=== PATIENT | female | born 1960 | race Caucasian/White ===

== ENCOUNTER 2022-03-27 12:13 | Outpatient (CLI) | payer MEDICAID, SELFPAY ==
--- NOTE | 2022-03-27 12:28 | XR_ITS ---
WS: [email or web address] XR chest 2V* [id number] REASON FOR EXAM: ASTHMA FINDINGS: The heart and mediastinum are within normal limits. Calcified granulomatous disease in both hemithoraces with large calcified node(s) in the left hilum. No active pulmonary parenchymal or pleural disease. Elevation of the right hemidiaphragm. No hyperexpansion. XR/XR chest 2V* [id number] IMPRESSION: No acute chest abnormality. Elevation of the right hemidiaphragm.
== END 2022-03-27 12:14 | disposition home or self-care (01) ==
LOC: RAD 12:20
PROVIDERS: PCP Family Medicine; Visit Provider Family Medicine
DX: J45.909 Unspecified asthma, uncomplicated (principal)
CPT/HCPCS: 71046

== ENCOUNTER 2022-05-16 07:25 | Outpatient (CLI) | payer MEDICAID, SELFPAY ==
--- NOTE | 2022-05-16 07:54 | MM_ITS ---
WS: [email or web address] BILATERAL SCREENING DIGITAL TOMOSYNTHESIS MAMMOGRAM WITH CAD HISTORY: SCREENING COMPARISON: 11/06/2015 Bilateral CC and MLO views with tomosynthesis and synthetic mammography submitted. Computer aided det ection analyzed. Breast composition: There are scattered areas of fibroglandular density. No suspicious masses, microc alcifications or architectural distortion. Benign intramammary lymph nodes in the posterior RIGHT herminia ast. MM/[place] [id number] IMPRESSION: BI-RADS: 2-Benign FOLLOW UP: 1 Year Follow-up
--- NOTE | 2022-05-16 07:58 | CT_ITS ---
WS: [id number] CT CHEST WITHOUT INTRAVENOUS CONTRAST HISTORY: PULMONARY FIBROSIS, UNSPECIFIED TECHNIQUE: Contiguous 5 mm axial imaging performed on the thorax. Coronal and sagittal reformats are submitted. All CT scans at [facility] use at least one of these dose optimization techniques: automated exposure control; mA and/or kV adjustment per patient size (includes targeted exams where dose is matched to clinical indication); or iterative reconstruction. CONTRAST: None DLP: 303.89 mGy.cm COMPARISON: Radiograph 03/27/2022 Lungs and central airway: Increased opacification in the RIGHT middle lobe with areas of atelectasis. Mild bronchial wall thickening. No discrete mass. Mild tree-in-bud airspace disease RIGHT middle lob e. There is additional very mild bronchial thickening in the RIGHT upper lobe. Pleura: Normal. No pleural effusion. Heart and pericardium: Mild cardiomegaly with no pericardial effusion. Mediastinum and waylon: There is fullness at the RIGHT hilum but this cannot be further evaluated witho ut IV contrast. Cannot exclude lymphadenopathy. There are a few heavily calcified mediastinal lymph n odes. Vessels: Normal size aortic and pulmonary artery. No coronary artery calcifications. Chest wall and lower neck: Surgical clips near the LEFT thyroid bed. Upper abdomen: Hepatic and splenic granulomata. Possible cholelithiasis. Too small to characterize l ow-attenuation lesion in the posterior RIGHT lobe the liver. Osseous structures: No destructive process. CT/CT chest wo con [id number] IMPRESSION: 1. Bronchial thickening and mild atelectasis in the RIGHT middle lobe. There i s additional very mild bronchial wall thickening in the medial RIGHT upper lobe . Mild tree-in-bud airspace disease in the RIGHT middle lobe. This all may be e ndobronchial pneumonia and infection but needs to be further evaluated. Recomme nd follow-up chest CT with IV contrast in 3-4 weeks after treatment. 2. Cannot exclude adenopathy on this unenhanced study. 3. Possible cholelithiasis and hepatic cysts. Recommend RIGHT upper quadrant u ltrasound.
== END 2022-05-16 07:26 | disposition home or self-care (01) ==
LOC: RAD 07:28
PROVIDERS: PCP Family Medicine; Visit Provider Family Medicine
DX: J84.10 Pulmonary fibrosis, unspecified (principal); Z12.31 Encounter for screening mammogram for malignant neoplasm of breast; J98.11 Atelectasis
CPT/HCPCS: 71250; 77063; 77067

== ENCOUNTER 2022-06-12 08:46 | Outpatient (CLI) | payer MEDICAID, SELFPAY ==
--- NOTE | 2022-06-12 08:57 | US_ITS ---
WS: [id number] RIGHT UPPER QUADRANT ULTRASOUND HISTORY: CHOLELITHIASIS COMPARISON: None available. Liver: 17.6 cm in length. Normal size liver and echogenicity. No bile duct dilatation or mass. Portal Vein: Normal hepatopetal flow with monophasic waveform. Gallbladder: Mildly contracted gallbladder with numerous stones. Mild gallbladder wall thickening. No pericholecystic fluid. Negative Sam[place]'s sign. CBD: 0.3 cm Pancreas: Obscured by bowel gas. Right kidney: 10.6 cm in length. Normal size and echogenicity. No hydronephrosis or mass. Aorta and IVC: Unremarkable abdominal aorta and IVC. No ascites. US/US abdomen limited [id number] IMPRESSION: 1. Cholelithiasis in a slightly contracted gallbladder. 2. No bile duct dilatation.
== END 2022-06-12 08:47 | disposition home or self-care (01) ==
PROVIDERS: PCP Family Medicine; Visit Provider Family Medicine
DX: K80.20 Calculus of gallbladder without cholecystitis without obstruction (principal)
CPT/HCPCS: 76705

== ENCOUNTER 2022-06-27 08:56 | Outpatient (CLI) | payer MEDICAID, SELFPAY ==
--- NOTE | 2022-06-27 09:08 | CT_ITS ---
WS: [email or web address] CT chest w con* [id number] HISTORY: ABNORMAL CT CHEST TECHNIQUE: Axial imaging performed through the thorax. Coronal and sagittal reformats are submitted. All CT scans at [facility] use at least one of these dose optimization techniques: automated exposure control; mA and/or kV adjustment per patient size (includes targeted exams where dose is mat ched to clinical indication); or iterative reconstruction. CONTRAST: Omnipaque 350; 100 mL IV. DLP: 181.79 mGy.cm COMPARISON: 05/16/2022 Lungs and central airway: Moderate crowding of the lung markings is due to poor inspiration. Imaging performed on expiration instead of inspiration. Significant improvement in groundglass opacification and bronchial thickening RIGHT middle lobe and medial RIGHT upper lobe. No pneumonia. No mass. Pleura: Normal. No pleural effusion. Heart and pericardium: Very minimal cardiomegaly. No effusion. Mild LEFT atrial enlargement. Mediastinum and waylon: No mediastinum or hilar adenopathy. Vessels: Normal size aortic and pulmonary artery. No coronary artery calcifications. Chest wall and lower neck: No soft tissue masses. Upper abdomen: Normally distended gallbladder. Cholelithiasis seen on recent ultrasound is not visual ized by CT. No adrenal mass. Visualized liver is normal. Osseous structures: No destructive process. CT/CT chest w con* [id number] IMPRESSION: 1. Near complete resolution of the RIGHT middle lobe pneumonitis and atelectas is. Minimal persistent bronchial wall thickening and atelectasis in the RIGHT m iddle lobe. 2. No lymphadenopathy. 3. No pneumonia.
[2022-06-27 09:41] LABS: Blood Urea Nitrogen 9 mg/dL (8-23); Glomerular Filtration Rate 73.2 mL/min (90-130)
== END 2022-06-27 08:57 | disposition home or self-care (01) ==
LOC: RAD 08:59
PROVIDERS: PCP Family Medicine; Visit Provider Family Medicine
DX: R91.8 Other nonspecific abnormal finding of lung field (principal)
CPT/HCPCS: 71260; 82565; 84520; Q9967

== ENCOUNTER 2022-07-31 11:02 | Outpatient (CLI) | payer MEDICAID, SELFPAY | END 2022-07-31 11:03 | disposition home or self-care (01) | LOC: RT 11:04 | PROVIDERS: PCP Family Medicine; Visit Provider Family Medicine | DX: R06.00 Dyspnea, unspecified (principal); J45.909 Unspecified asthma, uncomplicated | CPT/HCPCS: 94010 ==

== ENCOUNTER → 2022-11-03 13:14 | Outpatient (BNVA) | payer MEDICAID, SELFPAY | PROVIDERS: PCP Family Medicine; Visit Provider Internal Medicine Pulmonary Disease | DX: R06.02 Shortness of breath (principal); J30.2 Other seasonal allergic rhinitis; J45.909 Unspecified asthma, uncomplicated; R06.00 Dyspnea, unspecified; J98.6 Disorders of diaphragm | CPT/HCPCS: 36415; 82785; 85025; 86003 ==

== ENCOUNTER → 2022-11-03 14:28 | Outpatient (BNVA) | payer MEDICAID, SELFPAY | PROVIDERS: PCP Family Medicine; Visit Provider Internal Medicine Pulmonary Disease | DX: R06.02 Shortness of breath (principal); J30.2 Other seasonal allergic rhinitis | CPT/HCPCS: 71046 ==

== ENCOUNTER 2022-11-14 11:46 | Outpatient (CLI) | payer MEDICAID, SELFPAY ==
[2022-11-14 12:32] VITALS: BMI 30.2
--- NOTE | 2022-11-14 12:42 | ECG_ITS ---
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 Interpretive Statements NAME OF STUDY: TREADMILL STRESS TEST INDICATION: Dyspnea on Exertion, patient had excessive sob, pt claimed lightheadedness at end of exercise PROCEDURE: At the baseline, the patient's blood pressure was 147/101 with a heart rate of 89. The baseline electrocardiogram showed normal sinus rhythm with normal ST-Ts.. The patient exercised for 2 minutes and 36 seconds on a standard Ken protocol. Patient attained a maximum heart rate of 167 beats per minute(104% of the maximum predicted heart rate) with a blood pressure at the peak exercise of 173/95 mm Hg. The EKG at the peak exercise revealed no significant changes. Patient did not have any chest pain or any significant cardiac arrhythmias with the exercise. He was mainly complaining of shortness of breath with exercise. During the recovery phase, there were no new changes. Blood pressure at the end of the recovery phase was 138/91 mm Hg with a heart rate of 192 per minute. CONCLUSION: 1. Normal EKG response to treadmill exercise 2. No exercise-induced chest pain or cardiac arrhythmia 3. Impaired exercise tolerance, attained a maximum of 4.6 METs. 4. The Camargo treadmill score was 0 (moderate risk) Electronically Signed On 11-17-2022 8:32:21 CDT by Jax North M.D. [email or web address]
[2022-11-14 13:16] VITALS: BP 145/99; PULSE 100
== END 2022-11-14 11:47 | disposition home or self-care (01) ==
LOC: CDL 11:47
PROVIDERS: PCP Family Medicine; Visit Provider Internal Medicine Pulmonary Disease
DX: R06.00 Dyspnea, unspecified (principal); R06.02 Shortness of breath; R42 Dizziness and giddiness
CPT/HCPCS: 93017

== ENCOUNTER 2023-01-09 07:00 | Outpatient (CLI) | payer MEDICAID, SELFPAY ==
--- NOTE | 2023-01-09 | US_ITS ---
WS: [id number] Complete ABDOMINAL ULTRASOUND HISTORY: ABDOMINAL PAIN, HYPOGASTRIC COMPARISON: 06/12/2022 Liver: 16.5 cm in length. Normal size liver and echogenicity. No bile duct dilatation or mass. Portal Vein: Normal hepatopetal flow with monophasic waveform. Gallbladder: Normally distended with stones. No pericholecystic fluid. No bile duct dilatation. CBD: 0.3 cm Pancreas: Obscured Right kidney: 9.1 cm x 5.1 x 4.5 cm. Cortex:1.4 cm. Normal size and echogenicity. No hydronephrosis or mass. Left kidney: 10.0 cm x 4.8 cm x 4.7 cm. Cortex: 1.2 cm. Normal size and echogenicity. No hydronephrosis or mass. Very slight dilatation of the renal pelvis. May represent an early obstruction. Spleen: 8.8 cm in length. Normal. Granuloma. Aorta and IVC: Unremarkable abdominal aorta and IVC. Impression: 1. Cholelithiasis without acute cholecystitis. 2. No bile duct dilatation. 3. Nonvisualization of the pancreas. 4. Very minimal fluid dilatation of the LEFT renal pelvis. Patient has a large pelvic mass which may be causing a partial obstruction or early obstruction of the LEFT ureter. Please refer to the pelvic ultrasound report obtained on the same day.
--- NOTE | 2023-01-09 | US_ITS ---
WS: [email or web address] US pelvic complete* [id number], transabdominal and transvaginal. HISTORY: Enlarged uterus COMPARISON: None available. Uterus: 8.2 cm x 4.9 cm x 4.6 cm. Uterus is anteverted and normal size. On the transvaginal imaging there is heterogeneity within the m yometrium suggesting underlying fibroids. Endometrium: 0.8 cm. Poorly visualized endometrium. Endometrium is enlarged for patient's age and pos tmenopausal. Neither ovary is identified. Large complex cystic mass centered within the pelvis but arising into the abdomen. Mass is above the uterus and extends over a length of at least 17 cm, transversely by 18 cm in anterior posterior by 12 cm. There are low-level echoes within. No increased vascularity. There is a thick septation in the p osterior cystic mass. No free fluid IMPRESSION: 1. Large complex cystic mass with septation arising from the pelvis measuring 18 x 12 x 17 cm. Most l ikely ovarian in etiology. Neither ovary is identified. O RADS 4, intermediate risk. Recommend follow -up with FURNITURE BUILDER surgery. 2. Endometrium at 0.8 cm is enlarged for postmenopausal patient. 3. No ascites.
== END 2023-01-09 07:01 | disposition home or self-care (01) ==
LOC: RAD 07:00
PROVIDERS: PCP Family Medicine; Visit Provider Family Medicine
DX: R10.30 Lower abdominal pain, unspecified (principal); N85.2 Hypertrophy of uterus; R19.00 Intra-abdominal and pelvic swelling, mass and lump, unspecified site
CPT/HCPCS: 76700; 76830; 76856

== ENCOUNTER 2023-01-20 14:19 | Emergency (ER) | payer MEDICAID, SELFPAY ==
[2023-01-20 15:00] VITALS: BP 125/96; PULSE 86; RESP 17; TEMP 36.6; O2SAT 97; BMI 30.9
[2023-01-20 15:04] LABS: Basophils # 0.1 10^3/uL (0.0-0.1); Basophils % 1.2 %; Eosinophils # 0.1 10^3/uL (0.0-0.8); Eosinophils % 0.9 %; Hematocrit 44.8 % (36-47); Lymphocytes # 2.4 10^3/uL (0.8-4.8); Lymphocytes % 34.4 %; Mean Corpuscular HGB Conc 33.5 g/dL (30-55); Mean Corpuscular Hemoglobin 29.3 pg (27-33); Mean Corpuscular Volume 87.5 fl (85-98); Mean Platelet Volume 9.4 fL (7.4-10.4); Monocytes # 0.5 10^3/uL (0.2-0.9); Monocytes % 6.9 %; Neutrophils # 3.91 10^3/uL (1.8-7.7); Neutrophils % 56.3 %; Nucleated Red Blood Cells % 0 %; Platelet Count 314 10^3/cmm (157-399); Red Blood Count 5.12 10^6/uL (3.85-5.65); White Blood Count 6.94 10^3/uL (3.29-11.43)
[2023-01-20 15:17] LABS: Alanine Aminotransferase 12 U/L (0-33); Albumin Level 4.5 g/dL (3.5-5.2); Alkaline Phosphatase 81 U/L (35-105); Anion Gap 15.8 (5-19); Aspartate Amino Transferase 18 U/L (0-32); Blood Urea Nitrogen 14 mg/dL (8-23); Calcium 9.3 mg/dL (8.5-10.5); Carbon Dioxide 24 mmol/L (22-29); Chloride 105 mmol/L (98-107); Globulin 3.1 g/dL (1.3-4.6); Glomerular Filtration Rate 63.9 mL/min (90-130); Glucose 97 mg/dL (65-115); Lipase 37 U/L (13-60); Osmolality Calculated 292 mOsm/kg (285-295); Potassium 3.8 mmol/L (3.5-5.1); Sodium 141 mmol/L (136-145); Total Bilirubin 0.3 mg/dL (0.15-1.2); Total Protein 7.6 g/dL (6.6-8.7)
--- NOTE | 2023-01-20 17:46 | ED_ITS ---
HPI - Abdominal Pain General: Chief Complaint: Abdominal Pain Stated Complaint: Nathan sent for abd pain Time Seen by Provider: 01/20/23 17:45 History of Present Illness: 62-year-old female comes in today with mid abdominal pain. Patient has a history of tubal ligation surgery 98, lobe removal of thyroid in 2011, seasonal allergies, environmental allergies, asthma. Patient reports increased pain over the last week to her abdomen. Patient reports constipation over the last 3 d ays. Patient has an abdominal mass in the right lower abdomen which was noted in ultrasound within the last month. Patient is scheduled to follow-up with [facility] for the abdominal mass for concerns of either a ovarian tumor or fibroid. Patient appears nontoxic. Patient appears in mild to moderate pain. Associated Symptoms: Reports constipation; Denies diarrhea, nausea and vomiting Review of Systems General: Reports: 10 or more systems reviewed and unremarkable except in HPI and below Card: Denies: chest pain Resp: Denies: dyspnea GI: Reports: abdominal pain and constipation; Denies: nausea, vomiting or diarrhea : Denies: difficulty voiding Musc: Denies: neck pain or back pain Skin/Breast: Denies: rash PFSH ED PFSH: Medical History (Updated 01/20/23 @ 19:16 by MICHAEL Armendariz) Asthma Dyspnea Family History Mother Hyperlipidemia Heart disease Diabetes Father Hypertension Hyperlipidemia Heart disease Diabetes Grandmother Breast cancer Social History Smoking and tobacco/nicotine status: never used tobacco/nicotine Physical Exam Const: COMMON NORMALS: alert HENMT: COMMON NORMALS: normocephalic HEAD & SCALP: normocephalic Neck/C-Spine: COMMON NORMALS: full ROM Resp: COMMON NORMALS: normal respiratory effort and clear to auscultation bilaterally AUSCULTATION: clear to auscultation bilaterally Cardio: COMMON NORMALS: regular rate and regular rhythm RATE: regular rate RHYTHM: regular rhythm GI: COMMON NORMALS: Soft to palpation PALPATION: Yes Soft to palpation Back/Pelvis: COMMON NORMALS: thoracic and lumbar spine normal to inspection Extremity: COMMON NORMALS: full ROM Neuro: SENSORIUM/ORIENTATION: Yes alert Skin: COMMON NORMALS: turgor normal GENERAL SKIN EXAM: turgor normal Course Vital Signs: Vital signs: Vital Signs Temperature 98 F 01/20/23 15:00 Pulse Rate 76 01/20/23 19:22 Respiratory Rate 17 01/20/23 15:00 Blood Pressure 137/96 01/20/23 19:22 Pulse Oximetry 98 01/20/23 19:22 Oxygen Delivery Me thod Room Air 01/20/23 18:16 MDM - Abdominal Pain Medical Decision Making Patient comes in today with increased abdominal pain for the last 5 days and constipation for the last 3 days. Patient appears nontoxic. Patient appears in mild to moderate pain. On exam a palpable mass is noted in right lower quadrant. Patient does admit that this has been an ultrasound and appears to either be a fibroid or ovarian tumor. Differential diagnosis includes but not limited to bowel obstruction, ovarian mass, diverticulitis, gastroenteritis, UTI, renal colic. CT noted a large cystic lesion suggestive of a serous cystadenoma, but no acute abnormality otherwise was noted. CBC CMP and urinalysis was unremarkable except for some increased white blood cells in the urine. We will go ahead and treat for a mild urinary tract infection with 3 days of cephalexin antibiotic. Patient was recommended to follow-up primary care or [facility] specialist regarding the mass. Patient was encouraged to return to the ER for worsening symptoms such as fever, worsening pain, blood in vomit or stool. Patient was stable and discharged home. Lab Data 01/20/23 14:56 01/20/23 14:56 Labs/Radiology: Radiology Impressions Abdomen/Pelvis CT 01/20/23 17:55 IMPRESSION: Large adnexal cystic lesion, favored right ovarian serous cystadenoma by imaging but ultimately indeterminate. Tissue sampling is recommended for further characterization. No adenopathy. Laboratory Results WBC 6.94 10^3/uL (3.29-11.43) 01/20/23 14:56 RBC 5.12 10^6/uL (3.85-5.65) 01/20/23 14:56 Hgb 15.00 g/dL (11.27-16.99) 01/20/23 14:56 Hct 44.8 % (36-47) 01/20/23 14:56 MCV 87.5 fl (85-98) 01/20/23 14:56 MCH 29.3 pg (27-33) 01/20/23 14:56 MCHC 33.5 g/dL (30-55) 01/20/23 14:56 RDW 13.0 % (12.1-15.1) 01/20/23 14:56 Plt Count 314 10^3/cmm (157-399) 01/20/23 14:56 MPV 9.4 fL (7.4-10.4) 01/20/23 14:56 Neut % (Auto) 56.3 % 01/20/23 14:56 Lymph % (Auto) 34.4 % 01/20/23 14:56 Collin % (Auto) 6.9 % 01/20/23 14:56 Eos % (Auto) 0.9 % 01/20/23 14:56 Baso % (Auto) 1.2 % 01/20/23 14:56 Neut # (Auto) 3.91 10^3/uL (1.8-7.7) 01/20/23 14:56 Lymph # (Auto) 2.4 10^3/uL (0.8-4.8) 01/20/23 14:56 Collin # (Auto) 0.5 10^3/uL (0.2-0.9) 01/20/23 14:56 Eos # (Auto) 0.1 10^3/uL (0.0-0.8) 01/20/23 14:56 Baso # (Auto) 0.1 10^3/uL (0.0-0.1) 01/20/23 14:56 Nucleated RBC % (auto) 0 % 01/20/23 14:56 Nucleated RBCs # 0.0 /100WBC 01/20/23 14:56 Sodium 141 mmol/L (136-145) 01/20/23 14:56 Potassium 3.8 mmol/L (3.5-5.1) 01/20/23 14:56 Chloride 105 mmol/L (98-107) 01/20/23 14:56 Carbon Dioxide 24 mmol/L (22-29) 01/20/23 14:56 Anion Gap 15.8 (5-19) 01/20/23 14:56 BUN 14 mg/dL (8-23) 01/20/23 14:56 Creatinine 0.9 mg/dL (0.5-0.9) 01/20/23 14:56 GFR Calculation 63.9 mL/min (90-130) L 01/20/23 14:56 Glucose 97 mg/dL (65-115) 01/20/23 14:56 Calculated Osmolality 292 mOsm/kg (285-295) 01/20/23 14:56 Calcium 9.3 mg/dL (8.5-10.5) 01/20/23 14:56 Total Bilirubin 0.3 mg/dL (0.15-1.2) 01/20/23 14:56 AST 18 U/L (0-32) 01/20/23 14:56 ALT 12 U/L (0-33) 01/20/23 14:56 Alkaline Phosphatase 81 U/L (35-105) 01/20/23 14:56 Total Protein 7.6 g/dL (6.6-8.7) 01/20/23 14:56 Albumin 4.5 g/dL (3.5-5.2) 01/20/23 14:56 Globulin 3.1 g/dL (1.3-4.6) 01/20/23 14:56 Lipase 37 U/L (13-60) 01/20/23 14:56 Urine Color Yellow (Yellow) 01/20/23 18:11 Urine Appearance Sl hazy (CLEAR) A 01/20/23 18:11 Urine pH 5 (5-7) 01/20/23 18:11 Ur Specific Harwick 1.030 (1.005-1.030) 01/20/23 18:11 Urine Protein Neg (Negative) 01/20/23 18:11 Urine Glucose (UA) Norm (Normal) 01/20/23 18:11 Urine Ketones 3+ (Negative) H 01/20/23 18:11 Urine Blood Neg (Negative) 01/20/23 18:11 Urine Nitrate Negative (Negative) 01/20/23 18:11 Urine Bilirubin Neg (Negative) 01/20/23 18:11 Urine Urobilinogen Norm mg/dL (Negative) 01/20/23 18:11 Ur Leukocyte Esterase Negative (Negative) 01/20/23 18:11 Urine RBC 0-4 /hpf (0-2) H 01/20/23 18:11 Urine WBC 25-40 /hpf (0-5) H 01/20/23 18:11 Ur Squamous Epith Cells 5-10 /hpf (0-5) H 01/20/23 18:11 Amorphous Sediment Not Reportable 01/20/23 18:11 Urine Bacteria 1+ /hpf (NONE) H 01/20/23 18:11 Urine Mucus 3+ /hpf 01/20/23 18:11 All radiology interpretation(s) finalized by discharge Discharge Plan Discharge Patient Disposition: Home Clinical Impression: Mass of right ovary UTI (urinary tract infection) Qualifiers: Urinary tract infection type: site unspecified Hematuria presence: without hematuria Qualified Code(s): N39.0 - Urinary tract infection, site not specified Condition: Stable Prescriptions: New cephalexin 500 mg capsule 500 mg PO BID 3 Days Qty: 6 0RF No Action famotidine 20 mg tablet 20 mg PO DAILY albuterol sulfate 90 mcg/actuation HFA aerosol inhaler 2 puff inhalation Q6H PRN ipratropium-albuterol 0.5 mg-3 mg(2.5 mg base)/3 mL solution for nebulization 3 ml inhalation QID PRN (Reason: wheezing) Qty: 180 6RF budesonide-formoterol [Symbicort] 80-4.5 mcg/actuation HFA aerosol inhaler 1 inh inhalation BID Qty: 10.2 6RF montelukast [Singulair] 10 mg tablet 10 mg PO DAILY Qty: 90 3RF Discharge Orders: Discharge ED (Routine); Ordered 01/20/23 Ordered By: Igor Kendrick Referrals: Willow Evans DO [Primary Care Provider] - Discharge Diet: Usual diet Discharge Activity: Increase activity as tolerated Patient Instructions: Abdominal Pain (ED) Activity Restrictions/Additional Instructions: Take antibiotic as directed. Drink plenty of water and fluids. Eat a healthy diet. Follow-up with primary care or [facility] for further evaluation regarding ovarian mass. Recheck urine in 1 week for signs of infection. Return to ER for worsening symptoms such as nausea and vomiting, blood in vomit or stool, or fever greater than 100.4. Coding Level of Care Code ED [employer] Usher for Justin Quevedo
--- NOTE | 2023-01-20 17:54 | PC.NURSE ---
ASSUMED [facility] @[id number]
--- NOTE | 2023-01-20 17:55 | CTR_ITS ---
PROCEDURE INFORMATION: Exam: CT Abdomen And Pelvis With Contrast Exam date and time: 01/20/2023 6:25 PM Age: 62 years old Clinical indication: Abdominal pain; Generalized; Prior surgery; Surgery date: 6+ months; Surgery type: Tubal; Additional info: Constipation, abd pain, pelvic mass TECHNIQUE: Imaging protocol: Computed tomography of the abdomen and pelvis with contrast. Radiation optimization: All CT scans at this facility use at least one of these dose optimization techniques: automated exposure control; mA and/or kV adjustment per patient size (includes targeted exams where dose is matched to clinical indication); or iterative reconstruction. Contrast material: OMNI 350; Contrast volume: 100 ml; Contrast route: INTRAVENOUS (IV); REPORTING DATA: Count of CT and Cardiac NM exams in prior 12 months: This patient has received 2 known CTs and 0 known cardiac nuclear medicine studies in the 12 months prior to the current study. COMPARISON: US pelv w/transvag [id number] 01/09/2023 7:53 AM RADIATION DOSE METRICS: Total DLP (mGy-cm): 696 FINDINGS: Liver: No mass. Gallbladder and bile ducts: Cholelithiasis. Pancreas: No ductal dilation. Spleen: No splenomegaly. Adrenal glands: No mass. Kidneys and ureters: No hydronephrosis. Stomach and bowel: No obstruction. Appendix: No evidence of appendicitis. Intraperitoneal space: No free air. No significant fluid collection. Vasculature: No abdominal aortic aneurysm. Lymph nodes: No enlarged lymph nodes. Urinary bladder: Decompressed. Reproductive: Large pelvic cystic lesion measuring at least 10 cm AP x 18.8 cm LR x 17 cm CC with multiple thick septations along the left portion (example sagittal image 25). This appears likely of right ovarian origin such as on axial image 77. Local mass effect. Bones/joints: No acute findings. L5-S1 spondylosis and spondylolisthesis. Soft tissues: No acute findings. CT/CT abdomen pelvis w con* [id number] IMPRESSION: Large adnexal cystic lesion, favored right ovarian serous cystadenoma by imaging but ultimately indeterminate. Tissue sampling is recommended for further characterization. No adenopathy.
[2023-01-20] MEDS: sodium chloride 0.9% 500 ML 999 ML IV (18:14)
[2023-01-20 18:16] VITALS: BP 126/99; PULSE 79; O2SAT 99
[2023-01-20 18:22] LABS: Add Urine Microscopic? YES; Bilirubin Urine Neg (Negative); Blood Urine Neg (Negative); Glucose Urine UA Norm (Normal); Ketones Urine 3+ (Negative); Leukocyte Esterase Urine Negative (Negative); Nitrate Urine Negative (Negative); Protein Urine Neg (Negative); Urine Appearance SL Hazy (CLEAR); Urine Color Yellow (Yellow); Urobilinogen Urine Norm (Negative); pH Urine 5 (5-7)
[2023-01-20] MEDS: iohexol 350 mg/mL 500 mL Btl (per mL) IV (18:28)
[2023-01-20 18:37] LABS: Bacteria Urine 1+ /hpf; Mucus Urine 3+ /hpf; RBC Urine 0-4 /hpf (0-2); WBC Urine 25-40 /hpf (0-5)
[2023-01-20 18:38] LABS: Add Urine Culture? No
[2023-01-20] MEDS: cephALEXin 500 mg Capsule PO (19:20)
[2023-01-20 19:22] VITALS: BP 137/96; PULSE 76; O2SAT 98
== END 2023-01-20 19:25 | disposition home or self-care (01) ==
PROVIDERS: Emergency Medicine; Emergency Provider Nurse Practitioner Family; PCP Family Medicine
DX: N39.0 Urinary tract infection, site not specified (principal); N83.291 Other ovarian cyst, right side
CPT/HCPCS: 36415; 74177; 80053; 81001; 83690; 85025; 96360; 99285; J7040; Q9967

== ENCOUNTER 2023-07-07 08:44 | Outpatient (CLI) | payer MEDICAID, SELFPAY ==
--- NOTE | 2023-07-07 08:51 | MM_ITS ---
WS: [email or web address] BILATERAL SCREENING DIGITAL TOMOSYNTHESIS MAMMOGRAM WITH CAD HISTORY: SCREENING COMPARISON: 05/16/2022, 11/06/2015 Bilateral CC and MLO views with tomosynthesis and synthetic mammography submitted. Computer aided det ection analyzed. Breast composition: There are scattered areas of fibroglandular density. No suspicious masses, microc alcifications or architectural distortion. Lymph nodes against the posterior chest wall within each b reast. MM/[place] [id number] IMPRESSION: BI-RADS: 2-Benign FOLLOW UP: 1 Year Follow-up
== END 2023-07-07 08:45 | disposition home or self-care (01) ==
LOC: RAD 08:45
PROVIDERS: PCP Family Medicine; Visit Provider Family Medicine
DX: Z12.31 Encounter for screening mammogram for malignant neoplasm of breast (principal); Z78.9 Other specified health status; R92.323 Mammographic fibroglandular density, bilateral breasts
CPT/HCPCS: 77063; 77067

== ENCOUNTER 2024-04-08 09:23 | Outpatient (CLI) | payer MEDICAID, SELFPAY ==
--- NOTE | 2024-04-08 09:27 | US_ITS ---
WS: [email or web address] RIGHT UPPER QUADRANT ULTRASOUND HISTORY: RUQ PAIN COMPARISON: 01/09/2023 Liver: 17.3 cm in length. Normal size liver and echogenicity. No bile duct dilatation or mass. Portal Vein: Normal hepatopetal flow with monophasic waveform. Gallbladder: Nondistended gallbladder with stones. Several stones are present in the gallbladder lume n. No pericholecystic fluid. CBD: 0.3 cm Pancreas: Obscured. Right kidney: 9.1 cm in length. Normal size and echogenicity. No hydronephrosis or mass. Aorta and IVC: Unremarkable abdominal aorta and IVC. No ascites. US/US abdomen limited [id number] IMPRESSION: 1. Cholelithiasis without acute cholecystitis. Similar to the prior exam from 01/09/2023. 2. Normal liver. 3. Normal common bile duct.
== END 2024-04-08 09:24 | disposition home or self-care (01) ==
LOC: RAD 09:24
PROVIDERS: PCP Family Medicine; Visit Provider Family Medicine
DX: R10.11 Right upper quadrant pain (principal); K80.20 Calculus of gallbladder without cholecystitis without obstruction
CPT/HCPCS: 76705

== ENCOUNTER 2024-04-14 13:39 | Outpatient (CLI) | payer MEDICAID, SELFPAY ==
--- NOTE | 2024-04-14 13:40 | CT_ITS ---
WS: [email or web address] CT chest wo con [id number] HISTORY: ABNORMAL CT, PULMONARY FIBROSIS, ASTHMA TECHNIQUE: Axial imaging performed through the thorax. Coronal and sagittal reformats are submitted. All CT scans at [facility] use at least one of these dose optimization techniques: automated exposure control; mA and/or kV adjustment per patient size (includes targeted exams where dose is matched to clinical indication); or iterative reconstruction. CONTRAST: None DLP: 284.43 mGy.cm COMPARISON: 05/16/2022, 06/27/2022 Lungs and central airway: Improved aeration of the lungs since the prior study. There is minimal persistent linear atelectasis in the RIGHT middle lobe with mild bronchiectasis. 5 mm nodule in the medial RIGHT upper lobe may have been present on the prior study but better visualized today due to improved aeration. Long-term stability 3 mm nodule LEFT upper lobe. No additional nodules. No pneumonia. Pleura: Normal. No pleural effusion. Heart and pericardium: Normal size heart with no pericardial effusion. Mediastinum and waylon: Dense heavily calcified periaortic and mediastinal lymph nodes. Vessels: Normal size aortic and pulmonary artery. No coronary artery calcifications. Chest wall and lower neck: No soft tissue masses. Upper abdomen: Small hiatal hernia. Hepatic and splenic granulomata. Cholelithiasis. Nondistended gallbladder. Osseous structures: No destructive process. CT/CT chest wo con [id number] IMPRESSION: 1. Overall improved aeration since 06/27/2022. 2. Persistent subsegmental atelectasis in the RIGHT middle lobe. 3. 5 mm noncalcified pulmonary nodule in the medial RIGHT upper lobe. Recommen d follow-up chest CT in 6 to 12 months. 4. Minimal bronchiectasis in the RIGHT middle lobe.
== END 2024-04-14 13:40 | disposition home or self-care (01) ==
LOC: RAD 13:39
PROVIDERS: PCP Family Medicine; Visit Provider Family Medicine
DX: R91.8 Other nonspecific abnormal finding of lung field (principal); J84.10 Pulmonary fibrosis, unspecified; J98.11 Atelectasis; J47.9 Bronchiectasis, uncomplicated; I89.8 Other specified noninfective disorders of lymphatic vessels and lymph nodes; K44.9 Diaphragmatic hernia without obstruction or gangrene; K75.3 Granulomatous hepatitis, not elsewhere classified; D73.89 Other diseases of spleen; K80.20 Calculus of gallbladder without cholecystitis without obstruction
CPT/HCPCS: 71250

== ENCOUNTER 2024-06-07 06:17 | Outpatient (CLI) | payer MEDICAID, SELFPAY ==
--- NOTE | 2024-06-07 06:24 | NM_ITS ---
WS: [id number] NUCLEAR MEDICINE HIDA SCAN WITH GALLBLADDER EJECTION FRACTION HISTORY: RUQ PAIN COMPARISON: 04/08/2024 TECHNIQUE: The patient was intravenously injected with 8.6 mCi of TC99m Mebrofenin. Immediate imaging over the right upper quadrant was followed by 5 minute image and additional images for a total of 60 minutes. Normal uptake of radiotracer throughout the liver. Activity identified in the gallbladder at 15 minutes and well distended by 60 minutes. Activity in the proximal small bowel was seen by 15 minutes. Good washout of the radiotracer from the liver by 60 minutes. The patient then drank 8 ounces of Ensure Plus. Ejection fraction at 60 minutes was 72%. Normal GB ejection fraction is 35-75%. Post fatty meal symptoms: None. NM/NM hepatobiliary w phar* [id number] IMPRESSION: 1. Normal HIDA scan. 2. Normal gallbladder ejection fraction.
== END 2024-06-07 06:18 | disposition home or self-care (01) ==
PROVIDERS: PCP Family Medicine; Visit Provider Family Medicine
DX: R10.11 Right upper quadrant pain (principal)
CPT/HCPCS: 78227; A9537

== ENCOUNTER 2024-08-02 06:52 | Outpatient (CLI) | payer MEDICAID, SELFPAY ==
[2024-08-02 07:24] VITALS: PULSE 84; RESP 22; O2SAT 95
[2024-08-02] MEDS: albuterol 2.5 mg/3 mL Neb INHALATION (07:24)
== END 2024-08-02 06:53 | disposition home or self-care (01) ==
LOC: RT 06:53
PROVIDERS: PCP Family Medicine; Visit Provider Student in an Organized Health Care Education/Training Program
DX: R06.09 Other forms of dyspnea (principal); J47.9 Bronchiectasis, uncomplicated
CPT/HCPCS: 94060; 94726; 94729; J7613

== ENCOUNTER 2024-09-27 06:28 | Outpatient (CLI) | payer MEDICAID, SELFPAY ==
--- NOTE | 2024-09-27 06:51 | USCV_ITS ---
Yasmeen Ovalle Age: 64 Gender: F : 1960 Exam Date: 09/27/2024 07:02 Ordering Phys: Sergio Montgomery MD Technologist: [place] [facility] [place]: pulmonic pressures BP: 120 / 70 HR: 67 Rhythm: Sinus Technical Quality: Adequate MEASUREMENTS (Male / Female) Normal Values 2D ECHO LV Diastolic Diameter PLAX 4.2 cm 4.2 - 5.9 / 3.9 - 5.3 cm IVS Diastolic Thickness 1.0 cm 0.6 - 1.0 / 0.6 - 0.9 cm IVS Systolic Thickness 1.6 cm LVPW Diastolic Thickness 1.0 cm 0.6 - 1.0 / 0.6 - 0.9 cm LVPW Systolic Thickness 1.4 cm LVOT Diameter 2.0 cm LV Ejection Fraction 2D Teich 66.5 % LV Ejection Fraction MOD 4C 66.6 % LV Ejection Fraction MOD 2C 67.6 % LV Ejection Fraction 2C AL 68.6 % LA Diameter 2.8 cm RA Systolic Volume 4C AL 17.0 ml RA Systolic Volume 4C MOD 15.2 ml Aorta at Sinotubular Diameter 2.8 cm IVC Diameter 1.3 cm M-MODE LA Ao Ratio MM 1.1 AV Cusp Separation MM 1.9 cm DOPPLER AV Peak Velocity 120.0 cm/s LVOT Peak Velocity 92.0 cm/s AV Area Cont Eq vti 2.7 cm squared AV Area Cont Eq pk 2.5 cm squared MV Peak Velocity 107.0 cm/s MV Area PHT 3.4 cm squared Mitral E to A Ratio 0.7 TV Peak Velocity 194.5 cm/s TR Peak Velocity 249.0 cm/s TR Peak Gradient 24.8 mmHg TV Peak E Velocity 91.0 cm/s PV Peak Velocity 91.0 cm/s FINDINGS Left Ventricle Normal left ventricular size, systolic function and wall thickness, with no regional wall motion abnormalities. Left ventricular ejection fraction is estimated at 60 %. Grade I/IV diastolic dysfunction (abnormal relaxation filling pattern), normal to mildly elevated filling pressures. Right Ventricle The right ventricle is normal in size and function. Right Atrium The right atrium is normal in size. Left Atrium The left atrium is normal in size. Mitral Valve Structurally normal mitral valve without significant stenosis or prolapse. There is no mitral regurgitation. Aortic Valve Structurally normal aortic valve without significant sclerosis or stenosis. There is no aortic regurgitation. Tricuspid Valve Structurally normal tricuspid valve without significant stenosis or regurgitation. Pulmonary artery systolic pressure is normal. Pulmonic Valve Structurally normal pulmonic valve without significant stenosis. There is no pulmonic regurgitation. Pericardium Normal pericardium without effusion. Aorta Normal ascending aorta dimension. IVC The inferior vena cava appears normal. CONCLUSIONS Normal left ventricular size, systolic function and wall thickness, with no regional wall motion abnormalities. Left ventricular ejection fraction is estimated at 60 %. Grade I/IV diastolic dysfunction (abnormal relaxation filling pattern), normal to mildly elevated filling pressures. There is no pericardial effusion. No significant valve abnormalities. Right atrial pressure is around 5 mm of mercury. Ulises Payan MD (Electronically Signed) Final Date: 29 September 2024 14:58 S
== END 2024-09-27 06:29 | disposition home or self-care (01) ==
LOC: RAD 06:28
PROVIDERS: PCP Family Medicine; Visit Provider Student in an Organized Health Care Education/Training Program
DX: R06.09 Other forms of dyspnea (principal); R93.1 Abnormal findings on diagnostic imaging of heart and coronary circulation
CPT/HCPCS: 93306

== ENCOUNTER 2024-10-12 08:36 | Outpatient (CLI) | payer MEDICAID, SELFPAY ==
--- NOTE | 2024-10-12 08:44 | MM_ITS ---
WS: [id number] BILATERAL SCREENING DIGITAL TOMOSYNTHESIS MAMMOGRAM WITH CAD HISTORY: SCREEN COMPARISON: 07/07/2023, 05/16/2022 Bilateral CC and MLO views with tomosynthesis and synthetic mammography submitted. Computer aided detection analyzed. Breast composition: There are scattered areas of fibroglandular density. No suspicious masses, microcalcifications or architectural distortion. Benign calcifications in each breast. MM/MM scr BI tomosynthesis [id number] IMPRESSION: BI-RADS: 2 - Benign. FOLLOW UP: 1 Year Follow-up
== END 2024-10-12 08:37 | disposition home or self-care (01) ==
PROVIDERS: PCP Family Medicine; Visit Provider Family Medicine
DX: Z12.31 Encounter for screening mammogram for malignant neoplasm of breast (principal); R92.323 Mammographic fibroglandular density, bilateral breasts
CPT/HCPCS: 77063; 77067

== ENCOUNTER 2024-10-26 09:04 | Emergency (ER) | payer MEDICAID, SELFPAY ==
[2024-10-26 09:07] VITALS: BP 176/117; PULSE 76; RESP 27; TEMP 36.4; O2SAT 95
--- NOTE | 2024-10-26 09:19 | ECG_ITS ---
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 Measurements Intervals [place] Rate: 75 P: 52 ID: [id number] QRS: 4 QRSD: 86 T: 36 QT: 396 QTc: 443 Interpretive Statements SINUS RHYTHM POSSIBLE LEFT ATRIAL ENLARGEMENT [-0.1mV P-WAVE IN V1/V2] POSSIBLE LEFT VENTRICULAR HYPERTROPHY [VOLTAGE CRITERIA PLUS LAE OR QRS WIDENING] No previous ECG available for comparison Electronically Signed On 10-29-2024 08:53:49 CDT by Cal Díaz M.D. [email or web address] [id number]
--- NOTE | 2024-10-26 09:19 | XR_ITS ---
WS: [id number] PORTABLE CHEST HISTORY: dyspnea/cough COMPARISON: 11/03/2022 Lungs are clear and well expanded. No pleural effusion or pneumothorax. Cardiac size: Normal. Mediastinum/Aorta: Calcified LEFT hilar lymph node. No osseous abnormality seen. XR/XR chest 1V portable [id number] IMPRESSION: Unremarkable portable chest.
--- NOTE | 2024-10-26 09:30 | ED_ITS ---
HPI - SOB/Dyspnea 2 General: Chief Complaint: Shortness of Breath/Dyspnea Stated Complaint: sob Time Seen by Provider: 10/26/24 09:19 History of Present Illness: HPI Narrative: 62-year-old female presents emergency ro om complaining of shortness of breath. She is a dose of Spiriva and felt more short of breath after using it. This morning is the first time she ever had it. On arrival she is tachypneic with a normal oxygen saturation and appears to be hyperventilating. Denies chest pain or abdominal pain no stridor no wheezing. Associated symptoms: Deny abdominal pain, chest pain or fever(s) Related Data Home Medications ?Medication ?Instructions ?Recorded ?Confirmed atorvastatin 20 mg tablet 20 mg PO BEDTIME 10/26/24 budesonide-formoterol HFA 160 2 puff inhalation BID 10/26/24 mcg-4.5 mcg/actuation aerosol inhaler (Symbicort) ibuprofen 200 mg tablet (Advil) 400 mg PO Q6H PRN Feve r Or Pain 10/26/24 10/26/24 omeprazole 20 mg capsule,delayed See Rx Instructions . Route .COMPLEX 10/26/24 10/26/24 release tiotropium bromide 1.25 2 puff inhalation DAILY 10/0810/26/24 mcg/actuation mist for inhalation (Spiriva Respimat) Previous Rx's ?Medication ?Instructions ?Recorded montelukast 10 mg tablet 10 mg PO DAILY #90 tabs 10/09 03/31 (Singulair) ipratropium 0.5 mg-albuterol 3 mg 3 ml inhalation QID PRN wheezing 04/07/23 (2.5 mg base)/3 mL nebulization #180 mL soln albuterol sulfate 90 mcg/actuation 2 inh inhalation Q4 H PRN shortness 10/26/24 aerosol inhaler of breath or wheezing #18 gr ams methylprednisolone 4 mg tablets in See Rx Instructions PO .COMPLEX 10/26/24 a dose pack (Medrol (Massimo)) #21 ea Allergies Allergy/AdvReac Type Severity Reaction Status Date / Time cyclobenzaprine Allergy Unknown Verified 01/06/24 10:19 Review of Systems 2 Const: Denies: fever(s) or chills Card: Denies: chest pain Resp: Denies: dyspnea GI: Denies: abdominal pain : Denies: dysuria, urinary frequency or urinary urgency Musc: Denies: neck pain or back pain Skin/Breast: Denies: rash PFSH ED 2 PFSH: Medical History Dyspnea Asthma Family History Mother Hyperlipidemia Heart disease Diabetes Father Hypertension Hyperlipidemia Heart disease Diabetes Grandmother Breast cancer Social History Smoking and tobacco/nicotine status: never used tobacco/nicotine Physical Exam 2 Const: COMMON NORMALS: no acute distress GENERAL APPEARANCE: cooperative and comfortable ORIENTATION/CONSCIOUSNESS: Yes awake, Yes oriented to person, Yes oriented to place and Yes oriented to time HENMT: COMMON NORMALS: normocephalic, atraumatic and hearing grossly normal bilaterally HEAD & SCALP: normocephalic and atraumatic Resp: COMMON NORMALS: No retractions and clear to auscultation bilaterally EFFORT & INSPECTION: Yes tachypneic and Yes uses accessory muscles A USCULTATION: clear to auscultation bilaterally Cardio: COMMON NORMALS: regular rate, regular rhythm and No murmurs present (Cardio) RATE: regular rate RHYTHM: regular rhythm GI: COMMON NORMALS: Soft to palpation and No hepatosplenomegaly present A USCULTATION: Yes normoactive bowel sounds PALPATION: Yes Soft to palpation, No Tenderness to palpation present (GI), No Guarding due to palpation present (GI) and Yes No hepatosplenomegaly present Extremity: COMMON NORMALS: normal to inspection, capillary refill normal, no clubbing, cyanosis or edema, no calf tenderness and no pedal edema Neuro: SENSORIUM/ORIENTATION: Yes oriented to person, Yes oriented to place and Yes oriented to time Skin: COMMON NORMALS: no rashes or lesions noted GENERAL SKIN EXAM: no rashes or lesions noted Course 2 Vital Signs: Vital signs: Vital Signs Temperature 97.6 F 10/26/24 09:07 Pulse Rate 94 10/26/24 13:32 Respiratory Rate 24 H 10/26/24 10:52 Blood Pressure 147/102 10/26/24 13:32 Pulse Oximetry 96 10/26/24 13:32 Oxygen Delivery Me thod Room Air 10/26/24 13:01 MDM - SOB/Dyspnea Medical Decision Making Patient still has significant anxiety she was not hyperventilating her blood gas she is tachypneic but her oxygen sats are normal her blood gases will acclimated. Chest x-ray is normal discharge patient home on a steroid taper suspect pelvic this is anxiety some this may be side effect of medications will overall hold on the Spiriva. Follow-up with her primary care doctor Medical Records I reviewed the patient's medical records. Lab Data I reviewed the patient's lab results. 10/26/24 09:33 10/26/24 09:33 Labs/Radiology: Radiology Impressions Chest X-Ray 10/26/24 09:19 IMPRESSION: Unremarkable portable chest. Laboratory Results WBC 9.84 10^3/uL (3.29-11.43) 10/26/24 09:33 RBC 5.24 10^6/uL (3.85-5.65) 10/26/24 09:33 Hgb 14.80 g/dL (11.27-16.99) 10/26/24 09:33 Hct 43.5 % (36-47) 10/26/24 09:33 MCV 83.0 fl (85-98) L 10/26/24 09:33 MCH 28.2 pg (27-33) 10/26/24 09:33 MCHC 34.0 g/dL (30-55) 10/26/24 09:33 RDW 12.9 % (12.1-15.1) 10/26/24 09:33 Plt Count 307 10^3/cmm (157-399) 10/26/24 09:33 MPV 9.2 fL (7.4-10.4) 10/26/24 09:33 Neut % (Auto) 76.0 % 10/26/24 09:33 Lymph % (Auto) 17.8 % 10/26/24 09:33 Walsh % (Auto) 5.0 % 10/26/24 09:33 Eos % (Auto) 0.1 % 10/26/24 09:33 Baso % (Auto) 0.5 % 10/26/24 09:33 Neut # (Auto) 7.48 10^3/uL (1.8-7.7) 10/26/24 09:33 Lymph # (Auto) 1.8 10^3/uL (0.8-4.8) 10/26/24 09:33 Walsh # (Auto) 0.5 10^3/uL (0.2-0.9) 10/26/24 09:33 Eos # (Auto) 0.0 10^3/uL (0.0-0.8) 10/26/24 09:33 Baso # (Auto) 0.1 10^3/uL (0.0-0.1) 10/26/24 09:33 Nucleated RBC % (auto) 0 % 10/26/24 09:33 Nucleated RBCs # 0.0 /100WBC 10/26/24 09:33 Specimen Type Arterial 10/26/24 09:57 Sample Site Brachial, left 10/26/24 09:57 ABG pH 7.42 (7.35-7.45) 10/26/24 09:57 ABG pCO2 39.3 mmHg (35-45) 10/26/24 09:57 ABG pO2 66.2 mmHg (80.0-100.0) L 10/26/24 09:57 ABG HCO3 25.5 mmol/L (22-26) 10/26/24 09:57 ABG Base Excess 1.0 mmol/L (-2.0-2.0) 10/26/24 09:57 Roldan Test N/a 10/26/24 09:57 Hematocrit 46.4 % (37-47) 10/26/24 09:57 Hgb O2 Saturation 91.6 % (95-100) L 10/26/24 09:57 Carboxyhemoglobin 0.2 %THgb (0.4-20.1) L 10/26/24 09:57 Methemoglobin 0.9 % (0.4-1.5) 10/26/24 09:57 Total Hemoglobin 15.1 g/dL (12-16) 10/26/24 09:57 O2 Delivery Device Room air 10/26/24 09:57 Chair Caner ID Amh 10/26/24 09:57 Sodium 140 mmol/L (136-145) 10/26/24 09:33 Potassium 4.0 mmol/L (3.5-5.1) 10/26/24 09:33 Chloride 105 mmol/L (98-107) 10/26/24 09:33 Carbon Dioxide 25 mmol/L (22-29) 10/26/24 09:33 Anion Gap 14.0 (5-19) 10/26/24 09:33 BUN 7 mg/dL (8-23) L 10/26/24 09:33 Creatinine 0.7 mg/dL (0.5-0.9) 10/26/24 09:33 GFR Calculation 84.8 mL/min (90-130) L 10/26/24 09:33 Glucose 99 mg/dL (65-115) 10/26/24 09:33 Calculated Osmolality 288 mOsm/kg (285-295) 10/26/24 09:33 Calcium 9.7 mg/dL (8.5-10.5) 10/26/24 09:33 Total Bilirubin 0.4 mg/dL (0.15-1.2) 10/26/24 09:33 AST 14 U/L (0-32) 10/26/24 09:33 ALT 17 U/L (0-33) 10/26/24 09:33 Alkaline Phosphatase 88 U/L (35-105) 10/26/24 09:33 Total Protein 7.9 g/dL (6.6-8.7) 10/26/24 09:33 Albumin 4.4 g/dL (3.5-5.2) 10/26/24 09:33 Globulin 3.5 g/dL (1.3-4.6) 10/26/24 09:33 All radiology interpretation(s) finalized by discharge Discharge Plan Discharge Patient Disposition: Home Clinical Impression: Adverse effects of medication, COPD (chronic obstructive pulmonary disease) Condition: Stable Prescriptions: New methylprednisolone [Medrol (Massimo)] 4 mg tablets,dose pack See Rx Instructions .ROUTE .COMPLEX Qty: 21 0RF Rx Instructions: orally per package directions albuterol sulfate 90 mcg/actuation HFA aerosol inhaler 2 inh INHALATION Q4H PRN (Reason: shortness of breath or wheezing) Qty: 18 0RF No Action montelukast [Singulair] 10 mg tablet 10 mg PO DAILY Qty: 90 3RF ipratropium-albuterol 0.5 mg-3 mg(2.5 mg base)/3 mL solution for nebulization 3 ml inhalation QID PRN (Reason: wheezing) Qty: 180 6RF atorvastatin 20 mg tablet 20 mg PO BEDTIME omeprazole 20 mg capsule,delayed release(DR/EC) See Rx Instructions .ROUTE .COMPLEX Rx Instructions: TAKE 1 CAPSULE BY MOUTH TWICE DAILY ON AN EMPTY STOMACH 30 MINUTES TO 1 HOUR PRIOR TO A MEAL. budesonide-formoterol [Symbicort] 160-4.5 mcg/actuation HFA aerosol inhaler 2 puff INHALATION BID ibuprofen [Advil] 200 mg Tablet 400 mg PO Q6H PRN (Reason: Fever Or Pain) Spiriva Respimat 1.25 mcg/actuation Mist 2 puff INHALATION DAILY Discharge Orders: Discharge ED (Routine); Ordered 10/26/24 Ordered By: Bryce Soto Referrals: Willow Evans DO [Primary Care Provider, EMPLOYEE TRAINING SPECIALIST] Discharge Diet: Usual diet Discharge Activity: Resume usual activity Patient Instructions: Opioid Safety, Pain Management, Patient Portal & [place] Instructions Activity Restrictions/Additional Instructions: Thank you for choosing [facility] for your healthcare needs today. It is very important that you follow up as instructed or that you return to the Emergency Department should you have concerns or if your condition changes or worsens in any way. You were seen in the emergency room with complaints of difficulty breathing after using this Spiriva. Recommend that you stop the Spiriva and use albuterol as needed. Will put you on a steroid taper follow-up with your primary care doctor for further medication adjustments. Print Language: Turkmen Coding Level of Care Code ED Exercise Physiology Professor for Justin Quevedo
[2024-10-26 09:39] LABS: Hematocrit 43.5 % (36-47); Hemoglobin 14.80 g/dL (11.27-16.99); Mean Corpuscular HGB Conc 34.0 g/dL (30-55); Mean Corpuscular Hemoglobin 28.2 pg (27-33); Mean Corpuscular Volume 83.0 fl (85-98); Nucleated Red Blood Cells % 0 %; Platelet Count 307 10^3/cmm (157-399); Red Blood Count 5.24 10^6/uL (3.85-5.65); White Blood Count 9.84 10^3/uL (3.29-11.43)
[2024-10-26] MEDS: LORazepam 1 MG/0.5 ML injection IVP ×2 (09:41→13:15)
[2024-10-26 09:56] LABS: Alanine Aminotransferase 17 U/L (0-33); Albumin Level 4.4 g/dL (3.5-5.2); Alkaline Phosphatase 88 U/L (35-105); Anion Gap 14.0 (5-19); Aspartate Amino Transferase 14 U/L (0-32); Blood Urea Nitrogen 7 mg/dL (8-23); Calcium 9.7 mg/dL (8.5-10.5); Carbon Dioxide 25 mmol/L (22-29); Chloride 105 mmol/L (98-107); Creatinine Clr Calc Pharmacy 77.1095; Globulin 3.5 g/dL (1.3-4.6); Glucose 99 mg/dL (65-115); Osmolality Calculated 288 mOsm/kg (285-295); Potassium 4.0 mmol/L (3.5-5.1); Sodium 140 mmol/L (136-145); Total Protein 7.9 g/dL (6.6-8.7)
[2024-10-26 10:08] LABS: ABG PCO2 39.3 mmHg (35-45); ABG PH Result 7.42 (7.35-7.45); Arterial Blood Gas Hematocrit 46.4 % (37-47); Blood Gas Operator Identificat AMH; Blood Gas Sample Site Brachial, left; Blood Gas Sample Type Arterial; Carboxyhemoglobin 0.2 %THgb (0.4-20.1); HCO3 ABG 25.5 mmol/L (22-26); Methemoglobin 0.9 % (0.4-1.5); PO2 ABG 66.2 mmHg (80.0-100.0)
[2024-10-26 10:52] VITALS: PULSE 82; RESP 24; O2SAT 96
[2024-10-26] MEDS: methylPREDNISolone sod succ 125 mg/2 mL INJ IVP (10:52)
[2024-10-26 10:53] VITALS: BP 152/100; PULSE 84; O2SAT 98
[2024-10-26 12:30] VITALS: BP 138/106; PULSE 94; O2SAT 94
[2024-10-26 13:01] VITALS: BP 143/102; PULSE 93; O2SAT 94
[2024-10-26 13:32] VITALS: BP 147/102; PULSE 94; O2SAT 96
== END 2024-10-26 13:33 | disposition home or self-care (01) ==
PROVIDERS: Emergency Provider Family Medicine; PCP Family Medicine
DX: J44.9 Chronic obstructive pulmonary disease, unspecified (principal); T44.3X5A Adverse effect of other parasympatholytics [anticholinergics and antimuscarinics] and spasmolytics, initial encounter; X58.XXXA Exposure to other specified factors, initial encounter
CPT/HCPCS: 36415; 36600; 71045; 80053; 82805; 85025; 93005; 94640; 96374; 96375; 96376; 99285; J2060; J2919; J9999

== ENCOUNTER 2024-11-09 10:26 | Emergency (ER) | payer MEDICAID, SELFPAY ==
[2024-11-09 10:31] VITALS: BP 159/112; PULSE 101; RESP 24; TEMP 36.6; O2SAT 98; BMI 30.2
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
--- NOTE | 2024-11-09 10:34 | XR_ITS ---
WS: [id number] Portable AP upright chest, 11/09/2024 Clinical Data: sob Comparison: Portable chest, 10/26/2024 Findings: No nodules, masses or effusions are seen. The heart is normal. The pulmonary vascularity is not increased. No pneumonia or pneumothorax is seen. There is a calcified left hilar lymph node unchanged. The aortic arch shows mild tortuosity. Monitor leads are on the chest wall. XR/XR chest 1V portable [id number] Impression: Old granulomatous disease and atherosclerosis.
--- NOTE | 2024-11-09 10:34 | ECG_ITS ---
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 Measurements Intervals [place] Rate: 104 P: 39 [place]: 152 QRS: 1 QRSD: 84 T: 23 QT: 344 QTc: 454 Interpretive Statements SINUS TACHYCARDIA WITH OCCASIONAL VENTRICULAR PREMATURE COMPLEXES MODERATE VOLTAGE CRITERIA FOR LVH, CONSIDER NORMAL VARIANT [MEETS CRITERIA IN ONE OF: R(aVL), S(V1), R(V5), R(V5/V6)+S(V1)] ABNORMAL RHYTHM ECG Compared to ECG 10/26/2024 09:10:51 Ventricular premature complex(es) now present Sinus rhythm no longer present Electronically Signed On 11-09-2024 17:32:55 CDT by Jax North M.D. [email or web address] [id number]
--- NOTE | 2024-11-09 10:35 | ED_ITS ---
HPI - SOB/Dyspnea 2 General: Chief Complaint: Shortness of Breath/Dyspnea Stated Complaint: SOB Time Seen by Provider: 11/09/24 10:28 Source: patient and EMS Mode of arrival: EMS Limitations: no limitations History of Present Illness: HPI Narrative: 64-year-old female who states she has be en having shortness of breath over the last 4 years states she has had some increasing shortness of breath last few days. States she has been diagnosed with pulmonary fibrosis patient denies any cough she denies any fever she denies any chest pain patient's pulse ox here is 94% on room air she does not wear oxygen at home. Associated symptoms: Deny abdominal pain, chest pain, fever(s), nausea or vomiting Related Data Home Medications ?Medication ?Instructions ?Recorded ?Confirmed atorvastatin 20 mg tablet 20 mg PO BEDTIME 10/26/24 budesonide-formoterol HFA 160 2 puff inhalation BID 11/09/24 mcg-4.5 mcg/actuation aerosol inhaler (Symbicort) ibuprofen 200 mg tablet (Advil) 400 mg PO Q6H PRN Feve r Or Pain 10/26/24 11/09/24 omeprazole 20 mg capsule,delayed See Rx Instructions . Route .COMPLEX 10/26/24 11/09/24 release Previous Rx's ?Medication ?Instructions ?Recorded montelukast 10 mg tablet 10 mg PO DAILY #90 tabs 10/09 03/31 (Singulair) ipratropium 0.5 mg-albuterol 3 mg 3 ml inhalation QID PRN wheezing 04/07/23 (2.5 mg base)/3 mL nebulization #180 mL soln albuterol sulfate 90 mcg/actuation 2 inh inhalation Q4 H PRN shortness 10/26/24 aerosol inhaler of breath or wheezing #18 gr ams prednisone 50 mg tablet 50 mg PO DAILY #5 tabs 11/09 Allergies Allergy/AdvReac Type Severity Reaction Status Date / Time cyclobenzaprine Allergy Unknown Verified 01/06/24 10:19 Review of Systems 2 Const: Denies: fever(s), chills, body aches or change in appetite Card: Denies: chest pain Resp: Reports: dyspnea GI: Denies: abdominal pain, nausea, vomiting or diarrhea Musc: Denies: neck pain or back pain Skin/Breast: Denies: rash Neuro: Denies: headache(s) PFSH ED 2 PFSH: Medical History Dyspnea Asthma Family History Mother Hyperlipidemia Heart disease Diabetes Father Hypertension Hyperlipidemia Heart disease Diabetes Grandmother Breast cancer Social History Smoking and tobacco/nicotine status: never used tobacco/nicotine Physical Exam 2 Const: COMMON NORMALS: no acute distress, patient oriented x3 and healthy appearing HENMT: COMMON NORMALS: normocephalic and atraumatic HEAD & SCALP: n ormocephalic and atraumatic Neck/C-Spine: COMMON NORMALS: full ROM and supple Chest: COMMONS NORMALS: normal inspection of the chest Resp: COMMON NORMALS: normal respiratory effort, No retractions, No use of accessory muscles and clear to auscultation bilaterally AUSCULTATION: clear to auscultation bilaterally Cardio: COMMON NORMALS: regular rate, regular rhythm and No murmurs present (Cardio) RATE: regular rate RHYTHM: regular rhythm Extremity: COMMON NORMALS: normal to inspection and full ROM Neuro: COMMON NORMALS: patient oriented x3, moves all extremities and no focal motor deficits Psych: COMMON NORMALS: mental status grossly normal, Normal thought process present and cooperative THOUGHT PROCESS: Normal thought process present Skin: COMMON NORMALS: no rashes or lesions noted and no wounds GENERAL SKIN EXAM: no rashes or lesions noted Course 2 Vital Signs: Vital signs: Vital Signs Temperature 97.8 F 11/09/24 10:31 Pulse Rate 115 H 11/09/24 11:45 Respiratory Rate 18 11/09/24 11:45 Blood Pressure 115/87 11/09/24 11:45 Pulse Oximetry 95 11/09/24 11:45 Oxygen Delivery Me thod Room Air 11/09/24 11:09 Fraction of Inspir ed Oxygen 21 11/09/24 10:51 MDM - SOB/Dyspnea Medical Decision Making Patient presents here with shortness of breath patient's blood work imaging here is all normal she feels much improved after breathing treatment and steroids she does have some slight tachycardia likely from the albuterol that she has no signs of pulmonary embolism. Will start her on steroids she is follow-up with PCP return if worsening. Medical Records I reviewed the patient's medical records. Lab Data I reviewed the patient's lab results. 11/09/24 10:29 11/09/24 10:29 Labs/Radiology: Radiology Impressions Chest X-Ray 11/09/24 10:34 Impression: Old granulomatous disease and atherosclerosis. Laboratory Results WBC 10.77 10^3/uL (3.29-11.43) 11/09/24 10:29 RBC 5.53 10^6/uL (3.85-5.65) 11/09/24 10:29 Hgb 15.80 g/dL (11.27-16.99) 11/09/24 10:29 Hct 46.4 % (36-47) 11/09/24 10:29 MCV 83.9 fl (85-98) L 11/09/24 10:29 MCH 28.6 pg (27-33) 11/09/24 10:29 MCHC 34.1 g/dL (30-55) 11/09/24 10:29 RDW 13.2 % (12.1-15.1) 11/09/24 10:29 Plt Count 312 10^3/cmm (157-399) 11/09/24 10:29 MPV 9.7 fL (7.4-10.4) 11/09/24 10:29 Neut % (Auto) 54.9 % 11/09/24 10:29 Lymph % (Auto) 37.3 % 11/09/24 10:29 [place] % (Auto) 5.2 % 11/09/24 10:29 Eos % (Auto) 0.9 % 11/09/24 10:29 Baso % (Auto) 0.6 % 11/09/24 10:29 Neut # (Auto) 5.91 10^3/uL (1.8-7.7) 11/09/24 10:29 Lymph # (Auto) 4.0 10^3/uL (0.8-4.8) 11/09/24 10:29 [place] # (Auto) 0.6 10^3/uL (0.2-0.9) 11/09/24 10:29 Eos # (Auto) 0.1 10^3/uL (0.0-0.8) 11/09/24 10:29 Baso # (Auto) 0.1 10^3/uL (0.0-0.1) 11/09/24 10:29 Nucleated RBC % (auto) 0 % 11/09/24 10: Nucleated RBCs # 0.0 /100WBC 11/09/24 10:29 Sodium 145 mmol/L (136-145) 11/09/24 10:29 Potassium 3.8 mmol/L (3.5-5.1) 11/09/24 10:29 Chloride 105 mmol/L (98-107) 11/09/24 10:29 Carbon Dioxide 25 mmol/L (22-29) 11/09/24 10:29 Anion Gap 18.8 (5-19) 11/09/24 10:29 BUN 12 mg/dL (8-23) 11/09/24 10: Creatinine 0.7 mg/dL (0.5-0.9) 11/09/24 10:29 GFR Calculation 84.8 mL/min (90-130) L 11/09/24 10:29 Glucose 98 mg/dL (65-115) 11/09/24 10: Calculated Osmolality 300 mOsm/kg (285-295) H 11/09/24 10:29 Calcium 9.9 mg/dL (8.5-10.5) 11/09/24 10:29 Total Bilirubin 0.5 mg/dL (0.15-1.2) 11/09/24 10:29 AST 18 U/L (0-32) 11/09/24 10:29 ALT 32 U/L (0-33) 11/09/24 10:29 Alkaline Phosphatase 98 U/L (35-105) 11/09/24 10:29 NT-Pro-B Natriuret Pep < 36 pg/mL (0-125) 11/09/24 10:29 Total Protein 7.9 g/dL (6.6-8.7) 11/09/24 10:29 Albumin 4.4 g/dL (3.5-5.2) 11/09/24 10:29 Globulin 3.5 g/dL (1.3-4.6) 11/09/24 10:29 All radiology interpretation(s) finalized by discharge EKG Data EKG 1: I personally reviewed and interpreted this EKG as follows: EKG Interpretation Date: 11/09/24 EKG interpretation time: 10:28 Interpretation: sinus tach hr [address] elevation qrs 84 qtc 405 Discharge Plan Discharge Patient Disposition: Home Clinical Impression: Shortness of breath Condition: Stable Prescriptions: New prednisone 50 mg tablet 50 mg PO DAILY Qty: 5 0RF No Action montelukast [Singulair] 10 mg tablet 10 mg PO DAILY Qty: 90 3RF ipratropium-albuterol 0.5 mg-3 mg(2.5 mg base)/3 mL solution for nebulization 3 ml inhalation QID PRN (Reason: wheezing) Qty: 180 6RF atorvastatin 20 mg tablet 20 mg PO BEDTIME omeprazole 20 mg capsule,delayed release(DR/EC) See Rx Instructions .ROUTE .COMPLEX Rx Instructions: TAKE 1 CAPSULE BY MOUTH TWICE DAILY ON AN EMPTY STOMACH 30 MINUTES TO 1 HOUR PRIOR TO A MEAL. budesonide-formoterol [Symbicort] 160-4.5 mcg/actuation HFA aerosol inhaler 2 puff INHALATION BID ibuprofen [Advil] 200 mg Tablet 400 mg PO Q6H PRN (Reason: Fever Or Pain) albuterol sulfate 90 mcg/actuation HFA aerosol inhaler 2 inh INHALATION Q4H PRN (Reason: shortness of breath or wheezing) Qty: 18 0RF Discharge Orders: Discharge ED (Routine); Ordered 11/09/24 Ordered By: Tameka Lucero Referrals: Willow Evans DO [Primary Care Provider, LANDSCAPE MANAGER] Discharge Diet: Advance as tolerated Discharge Activity: Resume usual activity Patient Instructions: Shortness of Breath (ED) Print Language: Albanian Coding Level of Care Code ED Staking Engineer for Justin Quevedo
[2024-11-09] MEDS: methylPREDNISolone sod succ 125 mg/2 mL INJ IV (10:47)
[2024-11-09] MEDS: LORazepam 1 MG/0.5 ML injection 0.5 MG IVP (10:47)
[2024-11-09 10:51] VITALS: PULSE 107; RESP 18; O2SAT 93
[2024-11-09 10:57] LABS: Hematocrit 46.4 % (36-47); Hemoglobin 15.80 g/dL (11.27-16.99); Mean Corpuscular HGB Conc 34.1 g/dL (30-55); Mean Corpuscular Hemoglobin 28.6 pg (27-33); Mean Corpuscular Volume 83.9 fl (85-98); Nucleated Red Blood Cells % 0 %; Platelet Count 312 10^3/cmm (157-399); Red Blood Count 5.53 10^6/uL (3.85-5.65); White Blood Count 10.77 10^3/uL (3.29-11.43)
[2024-11-09 11:02] VITALS: PULSE 109
[2024-11-09 11:09] VITALS: BP 159/112; PULSE 117; RESP 18; O2SAT 91
[2024-11-09 11:20] LABS: Alanine Aminotransferase 32 U/L (0-33); Albumin Level 4.4 g/dL (3.5-5.2); Alkaline Phosphatase 98 U/L (35-105); Anion Gap 18.8 (5-19); Aspartate Amino Transferase 18 U/L (0-32); Blood Urea Nitrogen 12 mg/dL (8-23); Calcium 9.9 mg/dL (8.5-10.5); Carbon Dioxide 25 mmol/L (22-29); Chloride 105 mmol/L (98-107); Creatinine Clr Calc Pharmacy 78.9249; Globulin 3.5 g/dL (1.3-4.6); Glucose 98 mg/dL (65-115); NT Pro B Type Natriuretic Pept < 36 pg/mL (0-125); Osmolality Calculated 300 mOsm/kg (285-295); Potassium 3.8 mmol/L (3.5-5.1); Sodium 145 mmol/L (136-145); Total Protein 7.9 g/dL (6.6-8.7)
[2024-11-09 11:45] VITALS: BP 115/87; PULSE 115; RESP 18; O2SAT 95
== END 2024-11-09 11:46 | disposition home or self-care (01) ==
PROVIDERS: Emergency Provider Emergency Medicine; PCP Family Medicine
DX: R06.02 Shortness of breath (principal); J45.909 Unspecified asthma, uncomplicated
CPT/HCPCS: 71045; 80053; 83880; 85025; 93005; 94640; 96374; 96375; 99285; J2060; J2919; J7613; J9999

== ENCOUNTER 2024-11-30 10:53 | Outpatient (CLI) | payer MEDICAID, SELFPAY ==
--- NOTE | 2024-11-30 10:58 | XR_ITS ---
WS: [id number] Exam: XR hand LT min 3V* [id number] Date/Time of Exam: 11/30/2024 11:01 AM Reason For Exam: L HAND PAIN DLP: No fracture. The joints are preserved. Soft tissues are unremarkable. XR/XR hand LT min 3V* [id number] IMPRESSION: 1. No fracture or other significant finding.
== END 2024-11-30 10:54 | disposition home or self-care (01) ==
LOC: RAD 10:56
PROVIDERS: PCP Family Medicine; Visit Provider Family Medicine
DX: M79.642 Pain in left hand (principal)
CPT/HCPCS: 73130

== ENCOUNTER 2025-01-05 09:08 | Outpatient (CLI) | payer MEDICAID, SELFPAY ==
--- NOTE | 2025-01-05 09:15 | CT_ITS ---
WS: [id number] CT CERVICAL SPINE HISTORY: SHORTNESS OF BREATH/CERVICALGIA TECHNIQUE: Contiguous 2.0 mm axial imaging performed through the entire cervical spine. Sagittal and coronal reformats also performed. All CT scans at [facility] use at least one of these dose optimization techniques: automated exposure control; mA and/or kV adjustment per patient size (includes targeted exams where dose is matched to clinical indication); or iterative reconstruction. DLP: 140.57 mGy.cm COMPARISON: None available. Straightening and very slight reversal the normal cervical lordosis is probably positional. No cervical spine fracture. Facet joints are normally aligned. Small vertebral body endplate osteophytes are most significant at C4 and C5. Lateral masses of C1 and C2 are aligned. The odontoid is intact. C2-C3: Normal. C3-C4: Mild osteophytic ridging and facet arthritis. Mild foraminal stenosis. C4-C5: Diffuse osteophytic ridging with mild bilateral foraminal stenosis. C5-C6: Mild facet arthritis. No stenosis. C6-C7: Normal. C7-T1: Normal. Status post LEFT thyroidectomy. Several clips are noted in the surgical bed. Lung apices are clear. CT/CT cervical spin wo con* [id number] IMPRESSION: 1. No cervical spine fracture. 2. Mild facet joint arthritis and vertebral body osteophytosis. 3. Mild bilateral foraminal stenosis at C3-4 and C4-5. 4. LEFT thyroidectomy.
== END 2025-01-05 09:09 | disposition home or self-care (01) ==
PROVIDERS: PCP Family Medicine; Visit Provider Student in an Organized Health Care Education/Training Program
DX: R06.09 Other forms of dyspnea (principal); R06.02 Shortness of breath; G56.90 Unspecified mononeuropathy of unspecified upper limb; M54.2 Cervicalgia; M25.78 Osteophyte, vertebrae; M48.02 Spinal stenosis, cervical region; M47.892 Other spondylosis, cervical region; Z90.09 Acquired absence of other part of head and neck
CPT/HCPCS: 72125

== ENCOUNTER → 2025-01-12 06:57 | Day surgery (SDC) | payer MEDICAID, SELFPAY ==
[2025-01-12] VITALS (10 sets, daily range): BP systolic 114–139; BP diastolic 65–100; PULSE 66–80; RESP 16–17; TEMP 36.2–36.4; O2SAT 92–96; BMI 29.9
--- NOTE | 2025-01-12 08:04 | ANES.PREANE2 ---
Pre-Anesthetic Assessment Height/Weight: Height 5 ft 2 in Weight 164 lb Temp Pulse Resp BP Pulse Ox O2 Del Method 97.5 F L 80 17 139/97 96 Room Air 01/12/25 07:26 01/12/25 07:26 01/12/25 07:26 01/12/25 07:26 01/12/25 07:26 01/12/25 07:32 Preop Diagnosis: Mallet deformity of middle finger Operation Date: 01/12/25 09:00 Proposed Procedures p Mallet Repair LEFT Thumb AND Long Fingers(Left) - Jaime Hardy MD Was Beta Andreas taken within 24 hours: N/A Was Clonidine taken within 24 hours: N/A Last intake: Intake Last Liquid Date 01/11/25 Last Liquid Time 20:30 Last Solid Date 01/11/25 Last Solid Time 16:00 Social No alcohol and No tobacco Exam alert, oriented x 3, clear to auscultation bilaterally and regular rate & rhythm Airway Submandibular: within normal limits Cervical ROM: within normal limits Mallampati: Class III Dentition: false Comments: Comments: Upper plate Anesthetic Plan ASA status: 3 Anesthesia: General Other: No prior issues with anesthesia NPO since yesterday evening History of hypertension on amlodipine History of asthma Chronic dry cough which she states is from her asthma GERD, controlled with omeprazole Labs reviewed from 11/09/2024 and acceptable for procedure Prior EKG showing sinus tachycardia with PVCs Plan for general anesthesia with LMA and local via surgeon Medications/Allergies Home Medications ?Medication ?Instructions ?Recorded ?Confirmed ?Last Taken ?Type montelukast 10 mg tablet 10 mg PO DAILY #90 tabs 11/06/22 01/11/25 01/10/25 Rx (Singulair) ipratropium 0.5 mg-albuterol 3 mg 3 ml inhalation QID PRN wheezing 04/07/23 01/11/25 10/25/24 Rx (2.5 mg base)/3 mL nebulization #180 mL soln albuterol sulfate 90 mcg/actuation 2 inh inhalation Q4H PRN shortness 10/26/24 01/11/25 01/11/25 Rx aerosol inhaler of breath or wheezing #18 grams atorvastatin 20 mg tablet 20 mg PO BEDTIME 10/26/24 01/11/25 01/10/25 History budesonide-formoterol HFA 160 2 puff inhalation BID 10/26/24 01/11/25 01/11/25 History mcg-4.5 mcg/actuation aerosol inhaler (Symbicort) omeprazole 20 mg capsule,delayed 20 mg PO BID 10/26/24 01/11/25 01/11/25 History release amlodipine 5 mg tablet 5 mg PO DAILY 12/20/24 01/11/25 01/10/25 History cetirizine 10 mg capsule (Zyrtec) 10 mg PO DAILY PRN Allergy Symptoms 12/20/24 01/11/25 01/11/25 History umeclidinium 62.5 mcg/actuation 1 inh inhalation DAILY 12/20/24 01/11/25 01/10/25 History blister powder for inhalation (Incruse Ellipta) Allergies Allergy/AdvReac Type Severity Reaction Status Date / Time cyclobenzaprine Allergy Unknown Verified 01/11/25 12:28 Current Medications Generic Name Dose Route Start Last Admin Trade Name Freq PRN Reason Stop Dose Admin Sodium Chloride 1,000 mls @ 30 mls/hr 01/12/25 07:15 01/12/25 07:36 Sodium Chloride 0.9% IV 01/13/25 07:14 30 mls/hr .Q24H KAROLYN Administration PFSH Anesthesia Medical History (Updated 12/20/24 @ 13:06 by Jaime Hardy MD) Dyspnea Asthma Family History Mother Hyperlipidemia Heart disease Diabetes Father Hypertension Hyperlipidemia Heart disease Diabetes Grandmother Breast cancer Social History Smoking and tobacco/nicotine status: never used tobacco/nicotine Data Anesthesia Cardiac Studies: Echocardiogram 09/27/24
--- NOTE | 2025-01-12 08:50 | W.PM.OPSUD ---
Surgery/Procedure H&P Update DATE OF PROCEDURE: January 12, 2025 DATE H&P PERFORMED: 01/11/25 H&P UPDATE INFORMATION: I have reviewed H&P completed within last 30 days, I have examined patient prior to procedure and No changes to prior documentation PREOP DIAGNOSIS: Mallet deformity of left middle finger and left trigger thumb PLANNED PROCEDURE: Operation Date: 01/12/25 09:00 Proposed Procedures p Mallet Repair LEFT Thumb AND Long Fingers(Left) - Jaime Hardy MD And left trigger thumb release
[2025-01-12] MEDS: ceFAZolin 2,000 mg SDV 2000 MG IVP (09:20)
[2025-01-12] MEDS: BUPivacaine 0.5% INJ 10 mL INJECTION (10:20)
--- NOTE | 2025-01-12 10:49 | P.OP_ITS ---
Operative Report Date of procedure: January 12, 2025 Surgeon: Jaime Hardy MD Procedure: Preoperative diagnosis: Left long finger mallet finger, left trigger thumb Postoperative diagnosis: Same Procedure: Left long finger mallet repair and left thumb trigger finger release Surgeon: Jaime Hardy MD Anesthesia: General With local anesthetic Indications: Ce is a 64-year-old white female who injured her hand several w eeks ba and has been unable to extend the DIP joint of her long finger left hand since that time. She had worn a splint on it for a while but this did not help with the droop and lack of extension of the DIP joint long finger. She has also had difficulties with locking and catching of her left thumb i.e. trigger finger. She would like this addressed also. After clinical evaluation is felt that she had a ruptured extensor tendon off the distal phalanx of the left long finger as well as a trigger thumb. Therefore she was offered surgical repair of the mallet finger as well as surgical release of the trigger finger. All risk benefits treatment alternatives were discussed with her and she is agreeable to this at this time Procedure: After obtaining written consent patient was taken to the operating room and placed in the op table supine position general anesthetic administered. Once good anesthesia was achieved left upper extremities prepped and draped usual fashion. After surgical timeout a V type incision was made over the dorsum of the DIP joint long finger with apex proximal. Skin edges were raised to expose the extensor bonner and DIP joint. It was evident that tendon had been stretched and torn. Tendon was then freed up from the distal phalanx insertion with #15 blade. 3-0 Prolene weave stitch was placed at the end of this tendon leaving to open tails on either side of it. At this point a 0.045 K wire was then used to pin the DIP joint and full extension going from distal to proximal across the DIP joint. Subsequently drill holes were placed on either side of the insertion area of the distal phalanx for the extensor tendon. J Luis needles were then used to guide the sutures from the end of the tendons through these holes. These were then driven out through the finger pad. A bolster of Telfa was then made in the sutures were placed through this. Sutures were then tied over this to hold the repair at tension on the dorsal DIP joint. This was visualized to be happening as the sutures were tied down. Subsequently wound was then closed with 3-0 Prolene horizontal mattress sutures. Pin balls placed on the in the pin. Attention was then turned towards the trigger thumb. Incision was made through the distal flexion crease of the palm of the the base of the thumb. Sharp dissection taken down to subcutaneous tissues until tendon sheath was identified. Tendon sheath was divided longitudinally with #15 blade and then completion of the division of the A1 radha was done with small tenotomy scissors. Motion of the thumb demonstrates fluid motion with no catching. This wound was closed with 3-0 nylon horizontal mattress sutures. Wounds were then injected with half percent Marcaine plain totaling 10 cc digital block for the long finger and local anesthetic directly around the incision of the thumb. Wounds are clean and dry dressed with Xeroform gauze sterile gauze dressing Kerlix wrap and an Aldo wrap for compression. A aluminum extension splint was placed on the volar surface of the long finger and taped in place. Patient was waken transferred recovery in stable condition
--- NOTE | 2025-01-12 12:12 | ANE.PACU2 ---
Inpatient post-anesthesia follow up: Airway intact: Yes Vital signs: Temperature 97.3 F Pulse Rate 76 Respiratory Rate 17 Blood Pressure 131/87 Pulse Oximetry 95 Oxygen Delivery Me thod Room Air Oxygen Flow Rate 8 Fraction of Inspir ed Oxygen Hydration adequate: Yes Nausea and vomiting: No Pain level: 1 Mental status: Baseline
== END | disposition home or self-care (01) ==
PROVIDERS: PCP Family Medicine; Visit Provider Orthopaedic Surgery
PROC: (CPT 26433; principal; 2025-01-12 09:00)
PROC: (CPT 26433; 2025-01-12 09:00)
DX: M65.312 Trigger thumb, left thumb (principal); E03.9 Hypothyroidism, unspecified; J45.909 Unspecified asthma, uncomplicated; K21.9 Gastro-esophageal reflux disease without esophagitis
CPT/HCPCS: 26433; 26055; 76000; C1713; J0690; J2250; J2704; J3010; J3490; J7030; J9999

== ENCOUNTER → 2025-02-15 12:21 | Outpatient (BNVA) | payer MEDICAID, SELFPAY | PROVIDERS: PCP Family Medicine; Visit Provider Internal Medicine Cardiovascular Disease | DX: R07.9 Chest pain, unspecified (principal) | CPT/HCPCS: 93005 ==

== ENCOUNTER 2025-03-07 08:50 | Outpatient (CLI) | payer MEDICAID, SELFPAY ==
--- NOTE | 2025-03-07 | ECG_ITS ---
[facility] Test Date: 2025-03-07 Pat Name: Yasmeen Ovalle Department: Room: Gender: Female Nurse Practitioner: : 1960 Requested By: Ulises Payan Order Number: [id number] Reading MD: ULISES PAYAN Interpretive Statements Lung unchanged pre/post procedure; Intraprocedure shortess of breath; Symptoms resoled by discharge NOTE: Please note that this is the electrocardiogram portion of the Lexiscan/Sestamibi stress test. The perfusion scan will be documented separately. DATA: Baseline heart rate was 72 beats per minute. Baseline blood pressure was 176/99 millimeters of mercury. Target heart rate was 158. Maximum heart rate achieved was 113. which was 71 % of the predicted target heart rate. Maximum blood pressure was 176/99 millimeters of mercury. The reason for ending the test was completion of the protocol. The patient did not experience any symptoms. ELECTROCARDIOGRAM: BASELINE: Sinus rhythm. Normal axis. Otherwise, no ST-T changes suggestive of ischemia noted. No arrhythmia noted. EXERCISE: After Lexiscan injection, no ST-T changes suggestive of ischemic noted. No arrhythmia noted. CONCLUSION: Please note due to baseline abnormality of the EKG specificity and sensitivity of the EKG portion of LexiScan MIBI stress test will be low 1. EKG not suggestive of ischemia 2. Lexiscan injection unremarkable. 3. Perfusion scan will be documented separately. Electronically Signed On 03-09-2025 15:33:20 INSPECTOR MULTIFOCAL LENS by ULISES PAYAN [email or web address]
[2025-03-07 08:58] VITALS: BMI 31.1
--- NOTE | 2025-03-07 09:01 | NMCV_ITS ---
NM carlita perf SPECT r/s* [id number] Yasmeen Ovalle Age: 64 Gender: F : 1960 Exam Date: 03/07/2025 09:32 Ordering Phys: Ulises Payan MD ([email or web address]) Technologist: MONICA Gurrola Exam Location: [facility] Indications: cp STRESS TEST Please see separate stress test report in [facility] for full findings IMAGE PROTOCOL Rest/Stress 1 Lexiscan Day Radiopharmaceutical Dose (mCi) Administration Site Administered by Rest: Tc-99m 10.3 IV Guerita Daley, [employer] Sestamibi Stress:Tc-99m 32.2 IV Guerita Daely, [employer] Sestamibi Rest: 07-Mar-2025 60 Discovery 630 Stress: 07-Mar-2025 30 Discovery 630 0.4mg Lexiscan. Images obtained in supine and prone position. SPECT RESULTS Technical Quality: Good Raw Data Analysis: Normal Image Corrections: No attenuation or motion correction applied Summed Stress Score: 0 Summed Rest Score: 1 Summed Difference Score: 0 PERFUSION FINDINGS SPECT images demonstrate homogeneous tracer distribution throughout the myocardium. FUNCTIONAL RESULTS (calculated via Gated SPECT) Stress Image LV EF (%): 88 Stress EDV (mL):51 TID: 0.77 Stress ESV (mL):6 FUNCTIONAL FINDINGS: There is normal left ventricular systolic function. IMPRESSIONS Myocardial perfusion imaging is normal. Ulises Payan MD (Electronically Signed) Final Date: 07 March 2025 13:50 S
[2025-03-07 11:15] VITALS: BP 124/68; PULSE 66
== END 2025-03-07 08:51 | disposition home or self-care (01) ==
LOC: CDL 08:51
PROVIDERS: PCP Family Medicine; Visit Provider Internal Medicine Cardiovascular Disease
DX: R07.9 Chest pain, unspecified (principal)
CPT/HCPCS: 36415; 78452; 93017; 96374; A9500; J2785